=== PATIENT | female | born 1975 | race Caucasian/White ===

== ENCOUNTER 2022-07-09 01:07 | Day surgery (SDC) | payer OTHER, SELFPAY ==
[2022-07-07 13:35] VITALS: BMI 24.4
[2022-07-09 07:24] VITALS: BP 92/49; PULSE 65; RESP 18; TEMP 36.1; O2SAT 97
[2022-07-09] MEDS: LACTATED RINGERS 1,000 ML 150 ML IV CONT (07:35)
--- NOTE | 2022-07-09 07:45 | WPDANESEPPF ---
Anes - Initial Pre Proc Eval Procedure: Operation Date: 07/09/22 08:30 Proposed Procedures p Esophagogastroduodenoscopy & Colonoscopy - Earle Covington MD Date/Time: 07/09/22 07:45 Surgeon: Earle Covington MD Pre Op Diagnosis: GERD; anemia Patient Data Age: 46 Gender: F Height: 1.52 m Weight: 58.3 kg Last Vital Signs Temp 36.1 C L 07/09/22 07:24 Pulse 65 07/09/22 07:24 Resp 18 07/09/22 07:24 BP 92/49 L 07/09/22 07:24 Pulse Ox 97 07/09/22 07:24 O2 Del Method Room Air 07/09/22 07:24 Allergies Allergy/AdvReac Type Severity Reaction Status Date / Time codeine Allergy Unknown Verified 07/09/22 07:18 doxycycline Allergy Unknown Verified 07/09/22 07:18 latex Allergy Unknown Verified 07/09/22 07:18 Home Medications Medication Instructions Recorded Confirmed Type acetaminophen 325 mg tablet 325 mg PO BID PRN Pain 07/07/22 07/07/22 History omeprazole 20 mg capsule,delayed 20 mg PO DAILY 07/07/22 07/07/22 History release Patient hx anesthesia problems: none Family hx anesthesia problems: none Results Review: All pre-operative results and documents have been reviewed as part of the pre-operative evaluation. [facility] Social History Social History Smoking packs per day: 1 Smoking cigarettes per day: 20.0 Years smoked: 15 Smoking pack-years: 15.00 Smoking status: Former smoker Tobacco type: cigarettes Living arrangements: incarcerated Spiritual care concerns: No Anes - Eval Final PreProcedure Day of Procedure 07/09/22 07:45 Patient weight: normal Heart: regular rate and rhythm Lungs: clear to auscultation and normal air movement Airway: Mallampati scale class II Neurological: alert and oriented Last oral intake: >/= 8 hours ASA classification: II Emergent: no Anesthetic plan: proceed Anesthesia type and monitoring: general GIVS Results Review: All pre-operative results and documents have been reviewed as part of the pre-operative evaluation. Informed Consent: The patient's anesthetic plan and its attendant risks and benefits were discussed with the patient/family/POA. Questions were solicited and answers provided to the satisfaction of the patient/family/POA.
--- NOTE | 2022-07-09 08:30 | PM.HPGS ---
History of Present Illness History of Present Illness Consent: Risks, benefits, and alternatives have been discussed and questions answered. Patient agrees to proceed with procedure. Chief complaint: GERD; anemia Narrative: Steffen Macdonald is a 46 year old female with anemia, denies overt gib, she was using ibuprofen because back pain- not longer using and noted epigastric pain, now using ppi daily. Never had scopes. Review of Systems Constitutional: Constitutional: Denies headache(s) and Denies weakness Eyes: Eyes: Denies blurry vision ENT: Reports Normal hearing present, Denies headache(s) and Denies neck pain Cardiovascular: Cardiovascular: Denies chest pain and Denies dyspnea Respiratory: Respiratory: Denies dyspnea Gastrointestinal: Gastrointestinal: Reports no additional gastrointestinal complaints Genitourinary: Genitourinary: Denies dysuria Musculoskeletal: Musculoskeletal: Denies neck pain Integumentary/Breasts: Skin/Breast: Denies dry skin Neurologic: Reports Normal hearing present, Denies headache(s) and Denies weakness Psychiatric: Psychiatric: Denies anxiety Endocrine: Endocrine: Denies change in body appearance Hematologic/Lymphatic: Hematologic/Lymphatic: Denies easy bleeding Allergic/Immunologic: Allergic/Immunologic: Denies urticaria PMFSH Past Medical History Medical History (Updated 07/09/22 @ 08:31 by Earle Covington MD) Anemia Epigastric pain Social History Social History Smoking packs per day: 1 Smoking cigarettes per day: 20.0 Years smoked: 15 Smoking pack-years: 15.00 Smoking status: Former smoker Tobacco type: cigarettes Living arrangements: incarcerated Spiritual care concerns: No Meds Home Medications and Allergies Home Medications Medication Instructions Recorded Confirmed Type acetaminophen 325 mg tablet 325 mg PO BID PRN Pain 07/07/22 07/07/22 History omeprazole 20 mg capsule,delayed 20 mg PO DAILY 07/07/22 07/07/22 History release Allergies Allergy/AdvReac Type Severity Reaction Status Date / Time codeine Allergy Unknown Verified 07/09/22 07:18 doxycycline Allergy Unknown Verified 07/09/22 07:18 latex Allergy Unknown Verified 07/09/22 07:18 Vital Signs Vital Signs - 24 hr 07/09/22 07:24 Temperature 97 F L Pulse Rate 65 Respiratory Rate 18 Blood Pressure 92/49 L Pulse Oximetry 97 Oxygen Delivery Room Air Exam Const: General: comfortable and no acute distress HENMT: Face/Nose/Sinus: Normal nares present Eyes: General: appearance normal, both eyes and all related structures Neck: Neck: no JVD Resp: Auscultation: clear to auscultation bilaterally Cardio: Rate: regular rate Rhythm: regular rhythm GI: Inspection: non-distended GI Palp: Yes Soft to palpation Skin: General skin exam: normal color Neuro: General: gait normal Speech: normal speech Extrem: General: normal to inspection Psych: Mental Status: mental status grossly normal Assessment and Plan Assessment and plan (1) Anemia: Code(s): D64.9 - Anemia, unspecified Status: Acute Assessment and Plan: egd and colonoscopy to assess if gi loss (2) Epigastric pain: Code(s): R10.13 - Epigastric pain Status: Acute
--- NOTE | 2022-07-09 08:52 | SUR.OPER ---
EGD: [id number] COLON: [id number]
[2022-07-09 09:00] VITALS: BP 87/41; PULSE 62; RESP 13; O2SAT 98
[2022-07-09 09:10] VITALS: BP 99/47; PULSE 56; RESP 17; O2SAT 98
[2022-07-09 09:20] VITALS: BP 96/52; PULSE 59; RESP 20; O2SAT 100
--- NOTE | 2022-07-09 09:32 | SUR.PHASEII ---
pt escorted out by detention staff and [employer] staff.
== END 2022-07-09 09:33 | disposition home or self-care (01) ==
PROVIDERS: Visit Provider Internal Medicine Gastroenterology
PROC: 0DJ08ZZ Inspection of Upper Intestinal Tract, Via Natural or Artificial Opening Endoscopic (ICD-10-PCS; CPT 43235; principal; 2022-07-09 08:30)
DX: Z12.11 Encounter for screening for malignant neoplasm of colon (principal); K57.30 Diverticulosis of large intestine without perforation or abscess without bleeding; K64.8 Other hemorrhoids; K29.70 Gastritis, unspecified, without bleeding; K25.9 Gastric ulcer, unspecified as acute or chronic, without hemorrhage or perforation; Z87.891 Personal history of nicotine dependence
CPT/HCPCS: 45378; 43239; 87081; 88305; J2704; J3010; J7120